=== PATIENT | female | born 1990 | race Caucasian/White ===

== ENCOUNTER 2017-10-11 15:28 | Outpatient (CLI) | payer SELFPAY ==
[~2017-10-11] VITALS: Ht 172.7 cm; Wt 119.0 kg
[2017-10-11] VITALS (8 sets, daily range): BP systolic 115–164; BP diastolic 59–99
[~2017-10-11 15:28] MED LIST: ALBUTEROL17 GM IH; BENTYL20 MG PO; CELEXA40 MG PO; ENDOCET 5-3251 EACH PO; ESGIC 50-325-41 EACH PO; FIORICET,ESG1 TABLET PO; IBUPROFEN800 MG PO; INDERAL60 MG PO; IRON325 M1 PO; IRON325 MG PO; LOSEASONIQUE PO; METOCLOPRAMIDE10 MG PO; MOTRIN800 MG PO; PERCOCET 5/31 TABLET PO; PRENATAL TABLE1 EAC3 PO; PROAIR HFA8.5 GM IH; Proventil,Ventolin H IH; REGLAN10 MG PO; SINGULAIR10 MG PO; TOPAMAX25 MG PO; TYLENOL EXTRA500 MG PO; VITAMIN B12-FO1 EACH PO; VITAMIN C100 MG PO; Vicodin,Lortab 5/500 PO; ZOFRAN8 MG PO; [UNRECOGNIZED DRUG - OTHER] PO
[2017-10-11 16:16] LABS: BASOPHIL (%) 0.1 % (0-1); EOSINOPHIL (%) 0.4 % (0-5); EOSINOPHIL COUNT 0.1 K/uL (0-0.3); HEMATOCRIT 33.4 % (36.0-46.0); IMMATURE GRANULOCYTE (%) 1.2 % (0.0-0.7); LYMPHOCYTE (%) 16.3 % (15-42); LYMPHOCYTE COUNT 2.7 K/uL (1.0-2.8); MCH 21.1 PG (29.0-34.0); MCHC 29.9 G/DL (30.0-36.0); MCV 70.3 FL (83-99); MONOCYTE (%) 4.1 % (3-12); MONOCYTE COUNT 0.7 K/uL (0-0.8); NEUTROPHIL (%) 77.9 % (45-76); NEUTROPHIL COUNT 12.6 K/uL (1.8-6.4); PLATELET COUNT 234 K/uL (156-360); RBC DIS.WIDTH-CV 17.8 % (11.8-14.6); RBC DIS.WIDTH-SD 44.1 % (39-53); RED BLOOD COUNT 4.75 M/uL (3.80-5.20); WHITE BLOOD COUNT 16.2 K/uL (4.1-10.2)
[2017-10-11] MEDS ORDERED: FIORICET 50-301 EAC1 PO (16:18)
[2017-10-11] MEDS ORDERED: GLIPIZIDE ER2.5 MG PO (16:22)
[2017-10-11] MEDS ORDERED: EFFEXOR25 MG PO (16:23)
[2017-10-11 16:29] LABS: UR CREATININE CONCENTRATION 170.1 MG/DL
[2017-10-11 16:33] LABS: ALBUMIN 3.6 G/DL (3.2-4.8); ALKALINE PHOSPHATASE 107 IU/L (3-129); ALT (GPT) 9 IU/L (3-49); AST (GOT) 10 IU/L (2-34); CHLORIDE 108 MEQ/L (99-109); CREATININE 0.6 MG/DL (0.6-1.3); GFR ESTIMATE (CALCULATED) > 59 mL/min/; GLUCOSE 85 mg/dL (70-99); SODIUM 139 MEQ/L (136-147); TOTAL BILIRUBIN 0.2 MG/DL (0.0-1.0); TOTAL PROTEIN 7.1 G/DL (6.4-8.3); UREA NITROGEN (BUN) 10 mg/dL (9-23); URIC ACID 5.8 mg/dL (3.1-9.2)
== END 2017-10-11 17:40 | disposition home or self-care (01) ==
LOC: LDRP-OP 15:28 → 2WEST 15:29
PROVIDERS: Advanced Practice Midwife
DX: O26.893 Other specified pregnancy related conditions, third trimester (principal); R51 Headache; O24.415 Gestational diabetes mellitus in pregnancy, controlled by oral hypoglycemic drugs; O99.343 Other mental disorders complicating pregnancy, third trimester; F41.9 Anxiety disorder, unspecified; O99.613 Diseases of the digestive system complicating pregnancy, third trimester; K58.9 Irritable bowel syndrome, unspecified; O99.513 Diseases of the respiratory system complicating pregnancy, third trimester; J45.909 Unspecified asthma, uncomplicated; O34.219 Maternal care for unspecified type scar from previous cesarean delivery; Z3A.32 32 weeks gestation of pregnancy; Z88.0 Allergy status to penicillin; Z88.1 Allergy status to other antibiotic agents; Z88.8 Allergy status to other drugs, medicaments and biological substances
CPT/HCPCS: 59025; 80053; 82570; 84156; 84550; 85025; G0378

== ENCOUNTER 2017-10-26 14:21 | Outpatient (CLI) | payer OTHER ==
[2017-10-26] VITALS (9 sets, daily range): BP systolic 122–141; BP diastolic 66–99
[~2017-10-26 14:21] MED LIST changes: +EFFEXOR25 MG PO; +FIORICET 50-301 EAC1 PO; +GLIPIZIDE ER2.5 MG PO
[2017-10-26 15:16] LABS: BASOPHIL (%) 0.2 % (0-1); EOSINOPHIL (%) 0.5 % (0-5); EOSINOPHIL COUNT 0.1 K/uL (0-0.3); HEMATOCRIT 32.4 % (36.0-46.0); HEMOGLOBIN 9.7 G/DL (11.9-15.5); LYMPHOCYTE (%) 15.8 % (15-42); LYMPHOCYTE COUNT 2.5 K/uL (1.0-2.8); MCH 21.1 PG (29.0-34.0); MCHC 29.9 G/DL (30.0-36.0); MCV 70.6 FL (83-99); MONOCYTE (%) 4.6 % (3-12); MONOCYTE COUNT 0.7 K/uL (0-0.8); NEUTROPHIL (%) 75.9 % (45-76); NEUTROPHIL COUNT 11.8 K/uL (1.8-6.4); PLATELET COUNT 180 K/uL (156-360); RBC DIS.WIDTH-CV 19.7 % (11.8-14.6); RBC DIS.WIDTH-SD 47.6 % (39-53); RED BLOOD COUNT 4.59 M/uL (3.80-5.20); WHITE BLOOD COUNT 15.6 K/uL (4.1-10.2)
[2017-10-26 15:27] LABS: UR CREATININE CONCENTRATION 86.7 MG/DL
[2017-10-26 15:34] LABS: ALBUMIN 3.4 G/DL (3.2-4.8); ALKALINE PHOSPHATASE 124 IU/L (3-129); ALT (GPT) 8 IU/L (3-49); AST (GOT) 11 IU/L (2-34); CHLORIDE 105 MEQ/L (99-109); CREATININE 0.5 MG/DL (0.6-1.3); GFR ESTIMATE (CALCULATED) > 59 mL/min/; GLUCOSE 72 mg/dL (70-99); SODIUM 133 MEQ/L (136-147); TOTAL BILIRUBIN 0.2 MG/DL (0.0-1.0); TOTAL PROTEIN 6.6 G/DL (6.4-8.3); UREA NITROGEN (BUN) 8 mg/dL (9-23); URIC ACID 7.5 mg/dL (3.1-9.2)
[2017-10-27] MEDS ORDERED: MOTRIN800 MG PO (22:32)
[2017-10-27] MEDS ORDERED: PERCOCET 5/31 TABLET PO (22:32)
== END 2017-10-26 18:15 | disposition home or self-care (01) ==
LOC: LDRP-OP 14:21 → 2WEST 14:23 → LDRP-OP 01-04 17:57
PROVIDERS: Nurse Practitioner
DX: O26.893 Other specified pregnancy related conditions, third trimester (principal); O13.3 Gestational [pregnancy-induced] hypertension without significant proteinuria, third trimester; O24.419 Gestational diabetes mellitus in pregnancy, unspecified control; Z3A.34 34 weeks gestation of pregnancy; R51 Headache; O99.213 Obesity complicating pregnancy, third trimester; E66.9 Obesity, unspecified
CPT/HCPCS: 59025; 80053; 82570; 84156; 84550; 85025; G0378; J0702

== ENCOUNTER 2017-10-27 11:50 | Inpatient (IN) | payer OTHER ==
[~2017-10-27] VITALS: Ht 172.7 cm; Wt 116.4 kg
[2017-10-27 12:25] VITALS: BP 146/84
[2017-10-27 13:59] LABS: ALBUMIN 3.3 G/DL (3.2-4.8); ALKALINE PHOSPHATASE 115 IU/L (3-129); ALT (GPT) 8 IU/L (3-49); AST (GOT) 11 IU/L (2-34); CHLORIDE 106 MEQ/L (99-109); CREATININE 0.6 MG/DL (0.6-1.3); GFR ESTIMATE (CALCULATED) > 59 mL/min/; GLUCOSE 76 mg/dL (70-99); POTASSIUM 3.8 MEQ/L (3.7-5.4); SODIUM 136 MEQ/L (136-147); TOTAL BILIRUBIN 0.2 MG/DL (0.0-1.0); TOTAL PROTEIN 5.8 G/DL (6.4-8.3); UREA NITROGEN (BUN) 9 mg/dL (9-23)
[2017-10-27 14:07] LABS: BASOPHIL (%) 0.1 % (0-1); EOSINOPHIL (%) 0 % (0-5); HEMOGLOBIN 8.5 G/DL (11.9-15.5); IMMATURE GRANULOCYTE (%) 4.2 % (0.0-0.7); LYMPHOCYTE (%) 9.4 % (15-42); MCH 21.1 PG (29.0-34.0); MCHC 29.3 G/DL (30.0-36.0); MONOCYTE (%) 4.3 % (3-12); MONOCYTE COUNT 0.9 K/uL (0-0.8); NEUTROPHIL COUNT 17.5 K/uL (1.8-6.4); PLATELET COUNT 170 K/uL (156-360); RBC DIS.WIDTH-CV 19.5 % (11.8-14.6); RED BLOOD COUNT 4.03 M/uL (3.80-5.20); WHITE BLOOD COUNT 21.4 K/uL (4.1-10.2)
[2017-10-27 14:25] VITALS: BP 138/71
[2017-10-27 19:35] VITALS: BP 142/68
[2017-10-27 20:25] VITALS: BP 134/73
[2017-10-27 21:19] VITALS: BP 122/70
[2017-10-27] MEDS ORDERED: MOTRIN800 MG PO (22:32)
[2017-10-27] MEDS ORDERED: PERCOCET 5/31 TABLET PO (22:32)
[2017-10-27 23:28] VITALS: BP 135/79
[2017-10-28] VITALS (8 sets, daily range): BP systolic 118–142; BP diastolic 61–87
[2017-10-28 07:39] LABS: BASOPHIL (%) 0.1 % (0-1); EOSINOPHIL (%) 0.2 % (0-5); HEMATOCRIT 26.1 % (36.0-46.0); HEMOGLOBIN 7.6 G/DL (11.9-15.5); IMMATURE GRANULOCYTE (%) 3.2 % (0.0-0.7); LYMPHOCYTE (%) 14.5 % (15-42); LYMPHOCYTE COUNT 2.3 K/uL (1.0-2.8); MCHC 29.1 G/DL (30.0-36.0); MCV 72.1 FL (83-99); MONOCYTE (%) 4.6 % (3-12); MONOCYTE COUNT 0.7 K/uL (0-0.8); NEUTROPHIL (%) 77.4 % (45-76); NEUTROPHIL COUNT 12.4 K/uL (1.8-6.4); PLATELET COUNT 159 K/uL (156-360); RBC DIS.WIDTH-CV 19.8 % (11.8-14.6); RBC DIS.WIDTH-SD 49.5 % (39-53); RED BLOOD COUNT 3.62 M/uL (3.80-5.20); WHITE BLOOD COUNT 16.1 K/uL (4.1-10.2)
[2017-10-29] VITALS (7 sets, daily range): BP systolic 136–159; BP diastolic 70–90
[2017-10-30 03:39] VITALS: BP 132/75
[2017-10-30 07:07] VITALS: BP 143/70
[2017-10-30 11:55] VITALS: BP 139/71
[2017-10-30 16:27] VITALS: BP 145/72
[2017-10-30 19:19] VITALS: BP 136/72
[2017-10-30 21:24] VITALS: BP 138/79
[2017-10-31 01:33] VITALS: BP 126/57
[2017-10-31 05:52] VITALS: BP 138/75
[2017-10-31] MEDS ORDERED: LABETALOL HCL200 MG PO (09:00)
[2017-10-31 09:12] VITALS: BP 136/72
[2017-10-31 10:32] VITALS: BP 145/81
[2017-10-31 15:30] VITALS: BP 136/76
== END 2017-10-31 17:05 | disposition home or self-care (01) | DRG 766 ==
LOC: LDRP-OP 11:50 → 2WEST 11:52 → LDRP-OP 12-05 21:11
PROVIDERS: Obstetrics & Gynecology
PROC: 10D00Z1 Extraction of Products of Conception, Low, Open Approach (ICD-10-PCS; principal; 2017-10-27)
DX: O14.14 Severe pre-eclampsia complicating childbirth (principal); Z3A.34 34 weeks gestation of pregnancy; O99.214 Obesity complicating childbirth; Z37.0 Single live birth; E66.9 Obesity, unspecified; O34.219 Maternal care for unspecified type scar from previous cesarean delivery; O60.14X0 Preterm labor third trimester with preterm delivery third trimester, not applicable or unspecified; O24.420 Gestational diabetes mellitus in childbirth, diet controlled
CPT/HCPCS: 59025; 80053; 82570; 84156; 84550; 85025; 86850; 86900; 86901; 88307; G0378; J0702; J1580; J2270; J2274; J2590; J7050; J7120